=== PATIENT | male | born 2000 | race Hispanic/Latino ===

== ENCOUNTER 2023-12-05 15:17 | Inpatient (IN) | payer SELFPAY, OTHER ==
[~2023-12-05 15:17] MED LIST: Iopamidol-370 76% 500 ML MDV (1 ML CHARGE) ONE
[2023-12-05] MEDS ORDERED: fentaNYL 50 mcg/mL 1 mL Vial ONE (15:25)
[2023-12-05 15:48] LABS: #Basophils 0.03 10x3/uL (0.0-0.2); %Basophils 0.2 % (0.0-1.0); %Eosinophils 0.3 % (0.0-10.0); %Lymphocytes 14.2 % (21.0-51.0); %Monocytes 5.2 % (0.0-10.0); %Neutrophils 79.8 % (42.0-75.0); Hematocrit 42.4 % (42.0-52.0); Hemoglobin 15.2 g/dL (14.0-18.0); Mean Corpuscular HGB CONC 35.8 g/dL (32.0-36.0); Mean Corpuscular Hemoglobin 29.9 pg (27.0-31.0); Mean Corpuscular Volume 83.3 fL (78.0-98.0); Mean Platelet Volume 9.5 fL (7.4-10.4); Platelet Count 269 10x3/uL (130-400); RBC Distribution Width 12.3 % (11.5-14.5); Red Blood Cell (RBC) Count 5.09 mill/uL (4.70-6.10)
[2023-12-05] MEDS ORDERED: Boostrix 0.5 ML (Tdap) VIAL (>/=7 yrs of age) ONE (15:48)
[2023-12-05 15:57] LABS: Bacteria/HPF None Seen HPF (None Seen); Bilirubin Negative (Negative); Blood, Urine 3+ (Negative); CAUTI Indications for Culture Pelvic or flank pain; Clarity Clear (Clear); Glucose, Urine (Dipstick) Normal (Negative); Ketone, Urine Negative (Negative); Leukocyte Negative Leu/uL (Negative); Nitrite Negative (Negative); Protein, Urine (Dipstick) 50 mg/dL (Neg-Trace); RBC/HPF Greater than 50 HPF (0-3); Specific Gravity, Urine 1.025 (1.002-1.036); Squamous Epithelial None Seen HPF (0-3); Urobilinogen Normal mg/dL (Less than 2); pH, Urine 6.5 (5.0-9.0)
[2023-12-05 15:58] LABS: Urine Culture Reflex No No
[2023-12-05 16:00] LABS: Amphetamine Not Detected (NotDetected); Barbiturates Screen Not Detected (NotDetected); Benzodiazepine Screen Not Detected (NotDetected); Cocaine Metabolite Screen Not Detected (NotDetected); Methadone Not Detected (NotDetected); Methamphetamine Not Detected (NotDetected); Opiate Screen Not Detected (NotDetected); Oxycodone Screen Not Detected (NotDetected); Phencyclidine (PCP) Not Detected (NotDetected); THC/Cannabinoid Screen Not Detected (NotDetected); Tricyclic Screen Not Detected (NotDetected)
[2023-12-05 16:01] LABS: PTT 27.5 sec (22.9-36.1); Prothrombin Time 13.4 sec (12.0-14.7)
[2023-12-05 16:03] LABS: Alcohol Less than 10.0 mg/dL (Less than 10)
[2023-12-05 16:06] LABS: ALT (SGPT) 146 U/L (8-55); AST (SGOT) 158 U/L (5-34); Albumin 3.7 g/dL (3.5-5.0); Alkaline Phosphatase 97 U/L (40-110); Anion Gap 13 mmol/L (10-20); BUN (Urea Nitrogen) 14 mg/dL (8.9-20.6); Bilirubin, Total 0.4 mg/dL (0.2-1.2); Calc. Creatinine Clearance 0 mL/min (70-130); Calcium 8.5 mg/dL (7.8-10.44); Carbon Dioxide 25 mmol/L (22-29); Chloride 101 mmol/L (98-107); Estimated GFR 105; Globulin 3.4 g/dL (2.4-3.5); Glucose 128 mg/dL (70-105); Potassium 3.9 mmol/L (3.5-5.1); Protein, Total 7.1 g/dL (6.0-8.3); Sodium 135 mmol/L (136-145)
[2023-12-05] MEDS ORDERED: Bacitracin 1 PK ONE (16:16)
[2023-12-05] MEDS ORDERED: Lidocaine 1% w/Epinephrine 1:100K 20 ML VIAL ONE (16:16)
[2023-12-05] MEDS ORDERED: Ondansetron PF 4 MG/2 ML Vial IVP PRN (17:08)
[2023-12-05] MEDS ORDERED: Dextrose 50% Abboject 50 ML SYRINGE SLOW IVP PRN (17:08)
[2023-12-05] MEDS ORDERED: Dextrose 5% in Water 1,000 ML IV PRN (17:08)
[2023-12-05] MEDS ORDERED: hydrALAZINE 20 MG/ML VIAL SLOW IVP PRN (17:08)
[2023-12-05] MEDS ORDERED: Morphine 2 MG/ML VIAL SLOW IVP PRN (17:08)
[2023-12-05] MEDS ORDERED: Acetaminophen 325 MG TAB PO PRN (17:08)
[2023-12-05] MEDS ORDERED: HYDROcodone/Acetaminophen 5/325 mg Tablet PO PRN (17:08)
[2023-12-05] MEDS ORDERED: Ondansetron ODT 4 MG TAB PO PRN (17:08)
[2023-12-05] MEDS ORDERED: Acetaminophen/Codeine 30-300mg Tablet PO PRN (17:08)
[2023-12-05] MEDS ORDERED: Glucagon 1 MG/ML KIT IM PRN (17:08)
[2023-12-05] MEDS: TETANUS, DIPHTHERIA TOX,ADULT (TDVAX) 0.5 ML VIAL IM ONE (18:11)
[2023-12-05] MEDS: Lactated Ringer's 1,000 ML IV SCH (18:22)
[2023-12-05 18:42] VITALS: BMI 34.0
[2023-12-05] MEDS: Ketorolac Tromethamine 30 MG (1 mL) VIAL IVP SCH (20:21)
[2023-12-05] MEDS: FLU (Fluarix Triv) TS24-25(6MOS UP)/PF 45 MCG/0.5 ML Syringe IM ONE (20:23)
[2023-12-05] MEDS: Polyethylene Glycol 3350 17 GM Packet PO SCH (20:24)
[2023-12-05 23:25] LABS: Hematocrit 40.4 % (42.0-52.0); Hemoglobin 14.3 g/dL (14.0-18.0)
[2023-12-06] MEDS: Ketorolac Tromethamine 30 MG (1 mL) VIAL IVP SCH (00:50)
[2023-12-06 06:35] LABS: #Basophils 0.04 10x3/uL (0.0-0.2); %Basophils 0.4 % (0.0-1.0); %Eosinophils 0.7 % (0.0-10.0); %Lymphocytes 19.5 % (21.0-51.0); %Monocytes 9.4 % (0.0-10.0); %Neutrophils 69.7 % (42.0-75.0); Hematocrit 40.3 % (42.0-52.0); Hemoglobin 14.3 g/dL (14.0-18.0); Mean Corpuscular HGB CONC 35.5 g/dL (32.0-36.0); Mean Corpuscular Hemoglobin 29.7 pg (27.0-31.0); Mean Corpuscular Volume 83.6 fL (78.0-98.0); Mean Platelet Volume 8.9 fL (7.4-10.4); Platelet Count 233 10x3/uL (130-400); RBC Distribution Width 12.3 % (11.5-14.5); Red Blood Cell (RBC) Count 4.82 mill/uL (4.70-6.10)
[2023-12-06 06:52] LABS: Anion Gap 12 mmol/L (10-20); BUN (Urea Nitrogen) 7 mg/dL (8.9-20.6); Calc. Creatinine Clearance 226 mL/min (70-130); Calcium 8.7 mg/dL (7.8-10.44); Carbon Dioxide 23 mmol/L (22-29); Chloride 106 mmol/L (98-107); Estimated GFR 130; Glucose 107 mg/dL (70-105); Potassium 3.7 mmol/L (3.5-5.1); Sodium 137 mmol/L (136-145)
[2023-12-06 13:02] VITALS: TEMP 98.2
[2023-12-06 15:15] VITALS: BP 121/75
[2023-12-06 15:31] LABS: Hematocrit 40.9 % (42.0-52.0); Hemoglobin 14.2 g/dL (14.0-18.0)
== END 2023-12-06 17:30 | disposition home or self-care (01) | DRG 816 ==
LOC: ERS 15:17 → SURG A 17:48
PROVIDERS: ADMIT Specialist; ATTEND Specialist
DX: S36.039A Unspecified laceration of spleen, initial encounter (principal); W11.XXXA Fall on and from ladder, initial encounter; S01.01XA Laceration without foreign body of scalp, initial encounter; F17.210 Nicotine dependence, cigarettes, uncomplicated; F10.90 Alcohol use, unspecified, uncomplicated; S20.212A Contusion of left front wall of thorax, initial encounter; S30.1XXA Contusion of abdominal wall, initial encounter
CPT/HCPCS: 12004; 36415; 36416; 51702; 70450; 70486; 70498; 71045; 71260; 72125; 74177; 80048; 80053; 80306; 80307; 81001; 83605; 85025; 85610; 85730; 86850; 86900; 86901; 90471; 90656; 90715; 96374; G0390; J1885; J3010; J7120; Q9967